=== PATIENT | female | born 1980 | race Two or more races ===

== ENCOUNTER → 2016-03-26 | Outpatient (CLI) | payer OTHER ==
[~2016-03-26] MED LIST: PREN-129 OR
[2016-03-26 14:02] LABS: Basophils # (auto) 0.1 uL; Basophils % (auto) 0.8 % (0.0-2.0); Eosinophils # (auto) 0.1 uL; Eosinophils % (auto) 2.5 % (0.0-7.0); Lymphocytes # (auto) 1.7 uL; Lymphocytes % (auto) 34.8 % (10.0-50.0); Mean Corpuscular Hemoglobin 28.6 pg (28.0-32.0); Mean Corpuscular Hgb Conc. 31.8 g/dL (32.0-36.0); Mean Corpuscular Volume 89.8 fL (80.0-100.0); Mean Platelet Volume 8.3 fL (7.4-10.4); Monocytes # (auto) 0.4 uL; Monocytes % (auto) 8.6 % (0.0-12.0); Neutrophils # (auto) 2.6 uL; Neutrophils % (auto) 52.3 % (37.0-80.0); Platelet Count (auto) 265 10^3/uL (140-450); Red Cell Distribution Width 12.3 % (11.6-16.0); White Blood Cell 4.9 10^3/uL (4.4-10.8)
[2016-03-26 14:12] LABS: BUN/Creatinine Ratio 20.6; Calcium 8.6 mg/dL (8.5-10.1); Potassium 3.6 mmol/L (3.5-5.1)
== END | disposition home or self-care (01) ==
LOC: LAB 13:28
PROVIDERS: ATTEND Specialist
DX: L76.12 Accidental puncture and laceration of skin and subcutaneous tissue during other procedure (principal)
CPT/HCPCS: 36415; 80048; 85025; 86703; 86704; 86706; 86708; 86803; 87340

== ENCOUNTER → 2016-05-05 | Outpatient (CLI) | payer OTHER ==
[2016-05-05 14:54] LABS: Basophils # (auto) 0 uL; Basophils % (auto) 0.4 % (0.0-2.0); Eosinophils # (auto) 0.3 uL; Eosinophils % (auto) 4.5 % (0.0-7.0); Hematocrit 43.1 % (36.0-46.0); Hemoglobin 14.1 g/dL (12.2-16.2); Lymphocytes # (auto) 1.9 uL; Mean Corpuscular Hemoglobin 29.2 pg (28.0-32.0); Mean Corpuscular Hgb Conc. 32.7 g/dL (32.0-36.0); Mean Corpuscular Volume 89.4 fL (80.0-100.0); Mean Platelet Volume 7.9 fL (7.4-10.4); Monocytes # (auto) 0.4 uL; Monocytes % (auto) 6.2 % (0.0-12.0); Neutrophils # (auto) 4.3 uL; Neutrophils % (auto) 61.9 % (37.0-80.0); Platelet Count (auto) 308 10^3/uL (140-450); White Blood Cell 6.9 10^3/uL (4.4-10.8)
[2016-05-05 15:20] LABS: Albumin 3.9 g/dL (3.4-5.0); Alkaline Phosphatase 84 U/L (45-117); Anion Gap 8 (5-15); Aspartate Aminotransferase 14 U/L (15-37); BUN/Creatinine Ratio 22.6; Bilirubin, Direct < 0.1 mg/dL (0-0.2); Bilirubin, Total 0.2 mg/dL (0.2-1.0); Blood Urea Nitrogen 14 mg/dL (7-18); Calcium 8.6 mg/dL (8.5-10.1); Carbon Dioxide 26 mmol/L (21-32); Chloride 106 mmol/L (98-107); GFR African American 139 mL/min; GFR Non-African American 115 mL/min; Glucose 87 mg/dL (74-106); Potassium 4.1 mmol/L (3.5-5.1); Sodium 140 mmol/L (136-145); Total Protein 8.4 g/dL (6.4-8.2)
[2016-05-05 18:42] LABS: Hepatitis B Surface Antibody Negative
== END | disposition home or self-care (01) ==
LOC: LAB 14:26
PROVIDERS: ATTEND Specialist
DX: L76.12 Accidental puncture and laceration of skin and subcutaneous tissue during other procedure (principal)
CPT/HCPCS: 36415; 80048; 80076; 85025; 86703; 86704; 86706; 86708; 86803; 87340

== ENCOUNTER → 2016-07-16 | Outpatient (CLI) | payer OTHER | END | disposition home or self-care (01) | LOC: LAB 13:35 | DX: L76.12 Accidental puncture and laceration of skin and subcutaneous tissue during other procedure (principal) | CPT/HCPCS: 36415; 86704; 86706; 86708; 86803; 87340 ==

== ENCOUNTER → 2018-02-24 | Outpatient (CLI) | payer OTHER | END | disposition home or self-care (01) | LOC: LAB 12:48 | PROVIDERS: ATTEND Nurse Practitioner Family | DX: Z20.9 Contact with and (suspected) exposure to unspecified communicable disease (principal) | CPT/HCPCS: 36415; 86706; 86735; 86762; 86765; 86787 ==

== ENCOUNTER → 2018-10-05 | Outpatient (CLI) | payer OTHER | END | disposition home or self-care (01) | LOC: LAB 12:17 | PROVIDERS: ATTEND Nurse Practitioner Family | DX: Z20.9 Contact with and (suspected) exposure to unspecified communicable disease (principal) | CPT/HCPCS: 36415; 86706 ==

== ENCOUNTER → 2019-06-20 | Outpatient (CLI) | payer OTHER | END | disposition home or self-care (01) | LOC: LAB 14:05 | PROVIDERS: ATTEND Nurse Practitioner Family | DX: Z03.818 Encounter for observation for suspected exposure to other biological agents ruled out (principal) | CPT/HCPCS: C9803; U0003 ==